=== PATIENT | female | born 1950 | race Caucasian/White ===

== ENCOUNTER 2016-05-03 09:21 | Outpatient (CLI) | payer MEDICARE, OTHER ==
[2016-05-03 10:15] LABS: eGFR (African) > 60; eGFR (Non-African) > 60
--- NOTE | 2016-05-03 15:46 | Diagnostic Imaging Report ---
[facility] [address] [facility].[address] [address] Report Submission Date: May 03, 2016 10:59:03 AM STRATIGRAPHER Patient Study Name: TC EDMONDS Date: May 03, 2016 9:48:44 AM STRATIGRAPHER Modality Type: CR Gender: F Description: LOWER EXTREMITY : 48 Institution: [facility] Physician DUSTY CURTIS - OP Left knee -three views CLINICAL HISTORY: Follow-up knee replacement. Knee pain. FINDINGS: Examination of left knee in AP, lateral and sunrise views demonstrates postoperative changes status post left total knee replacement. Prosthetic components are normally seated in the little traverse bony structures. There is no evident fracture or joint effusion. IMPRESSION: Left total knee replacement. Electronically signed on May 03, 2016 10:59:03 AM STRATIGRAPHER by: Gabriel DIAZ
== END 2016-05-03 09:22 ==
LOC: LAB 09:21
PROVIDERS: ATTEND Family Medicine
DX: M25.562 Pain in left knee (principal); Z13.6 Encounter for screening for cardiovascular disorders; Z78.0 Asymptomatic menopausal state
CPT/HCPCS: 36415; 73562; 77080; 80053; 80061

== ENCOUNTER 2016-05-07 14:05 | Outpatient (CLI) | payer MEDICARE, OTHER | END 2016-05-07 14:06 | LOC: LAB 14:05 | PROVIDERS: ATTEND Family Medicine | DX: M85.80 Other specified disorders of bone density and structure, unspecified site (principal); M79.604 Pain in right leg; Z12.4 Encounter for screening for malignant neoplasm of cervix | CPT/HCPCS: 36415; 82306; G0143; 88148 ==

== ENCOUNTER 2016-08-05 08:32 | Day surgery (SDC) | payer MEDICARE, OTHER ==
--- NOTE | 2016-08-05 12:36 | GI Report ---
REFERRING PHYSICIAN: Dr. Izzy Rodrigues DIRECTOR PROCESS ENGINEERING: Gustavo Cazares MD PROCEDURE MEDICATION: Propofol as per anesthesia. INDICATIONS: This 65-year-old woman has had a sessile polyp piecemeal removed from the rectum in the past. No changes in bowel habits in the last 5 years. No blood. No pain. Occasionally a little bright red blood but she thinks it is fresh. PROCEDURE PERFORMED: Colonoscopy. PROCEDURE: An Olympus video colonoscope was advanced into the rectum. On retroflexion, she may have a slight internal hemorrhoid. I see no polyp or residual of the polyp in the rectum. The colonoscope was slowly advanced to the cecum. She has a slightly atonic redundant colon. The appendiceal orifice and terminal ileum looked normal. On slow withdrawal, the cecum, ascending colon, and transverse colon with redundancy but no obvious intraluminal lesions noted. Descending colon and sigmoid, again, redundancy, no obvious intraluminal lesions noted. In the rectum and retroflexion of the rectum, I see no residual polyp. A little friability in the anal canal. Patient tolerated the procedure well. FINDINGS: Slightly atonic redundant colon, otherwise, unremarkable colonoscopy. RECOMMENDATIONS: 1. A high-fiber diet. 2. Consider re-looking at her colon in 5 to 7 years since she has had a polyp in the past, sooner if clinically indicated. cc: Dr. Izzy DIAZ
== END 2016-08-05 08:33 ==
LOC: OPSURG 08:32
PROVIDERS: ATTEND Internal Medicine Gastroenterology
DX: Z87.19 Personal history of other diseases of the digestive system (principal); K59.8 Other specified functional intestinal disorders
CPT/HCPCS: J2001; J2704; J3490; J7120; 45378; S1016

== ENCOUNTER 2017-07-08 13:41 | Outpatient (CLI) | payer MEDICARE, OTHER | END 2017-07-08 13:42 | LOC: POD 13:41 | PROVIDERS: ATTEND Podiatrist | DX: B35.1 Tinea unguium (principal); M20.21 Hallux rigidus, right foot; M20.22 Hallux rigidus, left foot | CPT/HCPCS: G0463 ==

== ENCOUNTER → 2017-11-13 | Outpatient (CLI) | payer MEDICARE, OTHER ==
--- NOTE | 2017-11-13 16:10 | Diagnostic Imaging Report ---
DUSTY CURTIS [facility] [address] [facility].[address] [address] Report Submission Date: Nov 13, 2017 2:58:40 PM CDT Patient Study Name: TC EDMONDS Date: Nov 13, 2017 11:21:02 AM CDT Modality Type: DX Gender: F Description: LOWER EXTREMITY : 48 Institution: [facility] Physician: DUSTY CURTIS Examination: Plain film left foot History: LEFT FOOT, PAIN/SWELLING/BRUSING IN LEFT FOOT IN AREA OF 2ND AND 3RD DIGITS AFTER KICKING A PIECE OF FURNITURE YESTERDAY (Hx) Findings: 3 views of the left foot demonstrates articular degenerative changes. Oblique lucency involving the proximal phalanx 3rd digit. No other fracture or dislocation. Calcaneal spurs. No soft tissue swelling. No joint effusion. Impression: Oblique fracture proximal phalanx 3rd digit. Degenerative changes. Electronically signed on Nov 13, 2017 2:58:40 PM CDT by: Gm DIAZ
== END ==
LOC: RAD 11:20
PROVIDERS: ATTEND Family Medicine
DX: M79.675 Pain in left toe(s) (principal)
CPT/HCPCS: 73630

== ENCOUNTER 2017-11-17 08:59 | Outpatient (CLI) | payer MEDICARE, OTHER ==
--- NOTE | 2017-11-17 09:08 | History and Physical Report ---
History of Present Illnes - History of Present Illness Reason for Visit: Left foot broken 3rd toe History of Present Illness: Patient is a 67yoF presenting today with pain to the left foot and concern for a broken toe left foot. Patient states that on the 12 of November she stubbed her toe. She saw Dr. Rodrigues on the where she had xrays performed confirming fracture of a toe on her left foot. She was given directions of rest, ice anti-inflammatories, etc. She was sent with a rx to [employer] to obtain a hard soled surgical shoe to immobilize the toe. Referred to me for closed reduction and splinting prior to her leaving on vacation. Denies any major health complications. Denies any allergies. Does not admit to any other constitutional signs/symptoms such as fever, chills, nausea, vomiting, shortness of breath, or chest pain. - Past Surgical History Past Surgical History: Total Knee Replacement (2014 Left Knee) - Past Family History brother Family History: None (Did not ask about this today) - Past Social History Smoke: No Alcohol: Rare Drugs: None Lives: With Family - Health Maintenance Health Maintenance: Other Pneumonia Vaccine: No (Not requested today) Resuscitation Status: Full Code as not determined upon exam today. Review of Systems - Review of Systems Constitutional: negative: Fever, Chills Eyes: negative: pain, redness ENT: negative: Ear Pain, Mouth Pain Respiratory: negative: Cough, Dry Cardiovascular: negative: Chest Pain, Edema Gastrointestinal: negative: Nausea, Vomiting Genitourinary: negative: Dysuria, Hematuria Musculoskeletal: Foot Pain Skin: negative: Rash, Lesions Neurological: negative: Weakness - Medications/Allergies Allergies/Adverse Reactions: Allergies Allergy/AdvReac Type Severity Reaction Status Date / Time No Known Drug Allergies Allergy Unverified 11/17/17 14:37 Exam - Exam Vital Signs: Scanned in on order form. Reviewed at beginning of patient visit, as well as post procedure vitals. General: Oriented to Person, Oriented to Place, Oriented to Time HEENT: Atraumatic, Dentition Normal. No: Abnormal Pupil Neck: No: Rigidity Lungs: Speaks full Sentences. No: Respiratory Distress Cardiovascular: Other Abdomen: No: Distended Integumentary: Normal. No: Cellulitis Extremities: Normal pulses. No: No cyanosis Neurological: Normal gait, Normal speech Psych/Mental Status: Mental status NL Assessment/Plan - Assessment/Plan (1) Displaced unspecified fracture of left lesser toe(s), initial encounter for closed fracture Status: Acute Current Visit: Yes Plan: Xray Films from 11/13/2017: Show slightly displaced/angulated fracture of left 3rd proximal phalanx , spiral oblique fracture. Slight comminution noted. Procedure: Local Anesthetic given today consisting of 6mL 1:1 mix 2% lidocaine plain and 0. 5% marcaine plain into distal left 3rd metatarsal area. Patient had risks and benefits and alternative options discussed and she elected to go forward for closed reduction and splinting with amira taping. Denied any allergies or medical problems. Does not take any medications. Patient understands the toe may not reduce completely, or may slip and heal in a malposition, but should not effect her ambulation. Closed Reduction with amira taping performed today. More appropriate position of toe visualized clinically and taped appropriately. Sent for Xray post reduction films. Patient experienced some diaphoresis and was given water, and layed down. Vitals taken, found to be appropriate, with just slightly lowered HR. Patient recovered appropriately until she was comfortable standing and heading to xray. Post reduction films reviewed: Similar position of fracture orientation, with slight improvement. Due to stickiness of fracture, difficult to obtain much improvement with closed reduction. Fairly rectus position of toe, so will allow to heal in this position and patient understands it may not be aesthetically perfect, but should heal appropriately. Will explore other options surgically if does not heal appropriately. Instructed patient to keep amira splinted, sent with 1" coban roll and gauze. WB with surgical shoe at all times. Encouraged to take Ibuprofen 600mg regularly every 6 hours to help with swelling, continue ice and elevation. RTC 2 weeks with new xrays obtained at that point the day of or day before. Order will be placed. VTE Assessment - RISK FACTOR SCORE VTE RISK FACTOR SCORES: AGE OVER 60 YEARS - RISK VTE LOW RISK: SCORE OF 1 OR LESS (RISK PROXIMAL DVT 0.4%) NO PROPHYLAXIS NEEDED Foot Injury Physical Exam - Physical Exam General Appearance: no acute distress, alert Foot: left foot: pain (Left 3rd toe with some edema and ecchymosis mainly at left 3rd toe and some on adjacent toes. No pain on palpation to left 2nd or 4th toes. ), soft tissue tenderness, swelling Ankle: left: normal range of motion, bilateral: non-tender Neuro: sensation nml, motor nml Vascular: dorsalis pedis (2+ left), post. tibial (2+ left). No: abnml cap refill Tendons: tendon function nml (Left 3rd toe moving appropriately active ROM) Skin: warm (Left 3rd toe)
--- NOTE | 2017-11-17 16:52 | Diagnostic Imaging Report ---
ROSALIA PEARL [facility] [address] [facility].[address] [address] Report Submission Date: Nov 17, 2017 4:35:50 PM CDT Patient Study Name: TC EDMONDS Date: Nov 17, 2017 10:13:35 AM CDT Modality Type: DX Gender: F Description: LOWER EXTREMITY : 48 Institution: [facility] Physician: ROSALIA PEARL 3 views of the left foot History: RD PHALANX FX; DISPLACED; S/P CLOSED REDUCTION (Hx) / ITS.REASON 3RD PHALANX FX; DISPLACED; S/P CLOSED REDUCTION - Comparison: November 13, 2017 Again noted is a mildly displaced oblique fracture through the proximal phalynx of the left 3rd digit, given the slight difference in the projection between the studies, no significant change identified Plantar and posterior calcaneal enthesophytes are present. No obvious periosteal reaction is identified at the fracture site. Impression: 1. Oblique mildly displaced fracture of the left 3rd digit proximal phalanx without significant interval change Electronically signed on Nov 17, 2017 4:35:50 PM CDT by: Marley DIAZ
== END 2017-11-17 09:00 ==
LOC: POD 08:59
DX: S92.512A Displaced fracture of proximal phalanx of left lesser toe(s), initial encounter for closed fracture (principal); X58.XXXA Exposure to other specified factors, initial encounter; Y92.9 Unspecified place or not applicable; Y93.9 Activity, unspecified; Y99.9 Unspecified external cause status
CPT/HCPCS: 73630

== ENCOUNTER 2017-12-09 09:37 | Outpatient (CLI) | payer MEDICARE, OTHER ==
--- NOTE | 2017-12-09 16:33 | Diagnostic Imaging Report ---
ROSALIA PEARL [facility] [address] [facility].[address] [address] Report Submission Date: Dec 09, 2017 11:09:48 AM CDT Patient Study Name: TC EDMONDS Date: Dec 09, 2017 10:16:39 AM CDT Modality Type: DX Gender: F Description: LOWER EXTREMITY : 48 Institution: [facility] Physician: ROSALIA PEARL Left foot History: Follow up fracture Three views of the left foot were obtained and comparison made with November 17, 2017 The previously described mildly displaced spiral type fracture involving the 3rd proximal phalanx has not changed compared with November 17, 2017. No new osseous abnormalities are noted. Impression: No change in appearance of spiral fracture involving the 3rd proximal phalanx compared with November 17, 2017. Electronically signed on Dec 09, 2017 11:09:48 AM CDT by: Elysia DIAZ
== END 2017-12-09 09:40 ==
LOC: RAD 09:37
PROVIDERS: ATTEND Podiatrist Foot & Ankle Surgery
DX: S92.512D Displaced fracture of proximal phalanx of left lesser toe(s), subsequent encounter for fracture with routine healing (principal)
CPT/HCPCS: 73630

== ENCOUNTER 2017-12-18 13:56 | Outpatient (CLI) | payer MEDICARE, OTHER ==
--- NOTE | 2017-12-18 19:37 | Diagnostic Imaging Report ---
ROSALIA PEARL [facility] [address] [facility].[address] [address] Report Submission Date: Dec 18, 2017 2:48:29 PM CDT Patient Study Name: TC EDMONDS Date: Dec 18, 2017 2:04:54 PM CDT Modality Type: DX Gender: F Description: LOWER EXTREMITY : 48 Institution: [facility] Physician: ROSALIA PEARL Left foot History: Follow up fracture Three views of the left foot were obtained which demonstrate the presence an unchanged, mildly displaced fracture involving 3rd proximal phalanx. No additional osseous abnormalities are noted. Impression: Unchanged, mildly displaced fracture of the 3rd proximal phalanx. Electronically signed on Dec 18, 2017 2:48:29 PM CDT by: Elysia DIAZ
== END 2017-12-18 13:58 ==
LOC: RAD 13:56
PROVIDERS: ATTEND Podiatrist Foot & Ankle Surgery
DX: S92.512D Displaced fracture of proximal phalanx of left lesser toe(s), subsequent encounter for fracture with routine healing (principal)
CPT/HCPCS: 73630

== ENCOUNTER 2018-06-19 09:39 | Outpatient (CLI) | payer MEDICARE, OTHER ==
--- NOTE | 2018-06-20 04:47 | Diagnostic Imaging Report ---
DUSTY CURTIS [facility] [address] [address] Report Submission Date: Jun 19, 2018 10:37:17 AM CDT Patient Study Name: TC EDMONDS Date: Jun 19, 2018 12:00:00 AM CDT Modality Type: DEXA\OT Gender: F Description: DEXA : 48 Institution: [facility] Physician: DUSTY CURTIS Examination: Bone density History: Assess bone mineralization Comparison exams: None available Technique: DEXA protocol Findings: Average bone mineral density from L1 through L4: 1.087 grams cm2. T score: -0.8 Average bone mineral density of the left femoral neck: 0.832 grams cm2. T score: -1.5 Average bone mineral density of the right femoral neck: 0.821 grams cm2. T score: -1.6 Impression: Normal lumbar spine mineralization for age Bilateral hip osteopenia. Electronically signed on Jun 19, 2018 10:37:17 AM CDT by: Gm DIAZ
--- NOTE | 2018-06-20 04:48 | Diagnostic Imaging Report ---
DUSTY CURTIS [facility] [address] [facility].[address] [address] Report Submission Date: Jun 19, 2018 1:54:08 PM CDT Patient Study Name: TC EDMONDS Date: Jun 19, 2018 9:51:00 AM CDT Modality Type: DX Gender: F Description: KNEE 1 OR 2 VIEWS : 48 Institution: [facility] Physician: DUSTY CURTIS Examination: Plain film left knee History: S/P LEFT TKR X3 YEARS AGO Findings: 2 views of the left knee demonstrates knee replacement in place. No fracture. No dislocation. No joint effusion. No soft tissue irregularity. Impression: Knee replacement. No acute appearing osseous abnormality Electronically signed on Jun 19, 2018 1:54:08 PM CDT by: Gm DIAZ
== END 2018-06-19 09:40 ==
LOC: RAD 09:39
PROVIDERS: ATTEND Family Medicine
DX: Z78.0 Asymptomatic menopausal state (principal); Z96.652 Presence of left artificial knee joint; M85.852 Other specified disorders of bone density and structure, left thigh; M85.851 Other specified disorders of bone density and structure, right thigh
CPT/HCPCS: 73560; 77080